=== PATIENT | female | born 1995 | race Asian ===

== ENCOUNTER 2019-03-11 23:53 | Emergency (ER) | payer OTHER ==
[~2019-03-11] VITALS: Ht 162.6 cm; Wt 54.4 kg
--- NOTE | 2019-03-11 23:53 | NUR ---
ED Nurse Note: pt brought in by [facility] from [facility] c/c ETOH intoxication, per EMS report pt's friends called 911 because the pt was too drunk. pt had vomiting episode x 1 with ems. pt currently unable to stay awake, sleeping at this time, vss, resp even and unlabored on RA, will cont monitor.
[2019-03-11 23:55] VITALS: BP 111/70
--- NOTE | 2019-03-12 00:04 | Emergency Room Report ---
History of Present Illness General Chief Complaint: Alcohol Intoxication Source: EMS Present Illness HPI This is a 24-year-old female with unknown past medical history. She presents with chief complaint of alcohol intoxication. Her friends called 911 because she is been drinking and was vomiting. She was outside of a concert. No trauma. History is limited because of patient's condition. Allergies: Coded Allergies: No Known Allergies (Unverified , 03/11/19) Patient History Past Medical History: see triage record, old chart reviewed Past Surgical History: none Pertinent Family History: none Social History: Reports: alcohol use Last Menstrual Period: unk Now: No Immunizations: other Reviewed Nursing Documentation: PMH: Agreed; PSxH: Agreed Nursing Documentation-PMH Past Medical History Deferred: Patient Unconscious Review of Systems All Other Systems: limited - Limited because of intoxication Physical Exam Vital Signs Date Time Temp Pulse Resp B/P (MAP) Pulse Ox O2 Delivery O2 Flow Rate FiO2 03/11/19 23:45 97.2 100 15 111/70 (84) 98 Room Air Vitals normal Sp02 EP Interpretation: reviewed, normal General Appearance: well appearing, no apparent distress, other - Intoxicated Head: normocephalic, atraumatic Eyes: bilateral eye PERRL, bilateral eye EOMI ENT: hearing grossly normal, normal pharynx Neck: full range of motion, supple, no meningismus Respiratory: chest non-tender, lungs clear, normal breath sounds Cardiovascular #1: regular rate, rhythm, no murmur Gastrointestinal: normal bowel sounds, non tender, no mass, no organomegaly, no bruit, non-distended Musculoskeletal: back normal, gait/station normal, normal range of motion Psychiatric: mood/affect normal Medical Decision Making Diagnostic Impression: Primary Impression: Acute alcoholic intoxication Qualified Codes: F10.920 - Alcohol use, unspecified with intoxication, uncomplicated ER Course Patient presents with acute alcohol intoxication. No trauma to warrant CT scan or x-ray. Will observe until clinical sobriety. Slept for several hours. Her friends are here to pick her up. Patient is more sober. Will discharge to friends. Last Vital Signs Date Time Temp Pulse Resp B/P (MAP) Pulse Ox O2 Delivery O2 Flow Rate FiO2 03/11/19 23:55 97.2 102 12 111/70 98 Room Air Status: improved Disposition: HOME, SELF-CARE Condition: Stable Patient Instructions: Alcohol Intoxication, [id number] Additional Instructions: Abstain from drinking to excess. Follow-up with your doctor in 7 days. Return if worse. Oz Kc MD Mar 12, 2019 00:04
--- NOTE | 2019-03-12 02:49 | NUR ---
ED Nurse Note: pt cleared to be d/c per ERMD, pt discharge and aftercare instruction provided, pt education done via discussion and handout, pt advised to follow up with pcp or return to ed if changes in condition, vss, ambulatory w/ steady gait, left w/ all belongings, iv d/c and id band removed, pt accompanied by friends.
[2019-03-12 02:51] VITALS: BP 126/72
== END 2019-03-12 02:51 | disposition home or self-care (01) ==
LOC: EDBD 23:53 → EMR 03-12 00:14
DX: F10.920 Alcohol use, unspecified with intoxication, uncomplicated (principal)
CPT/HCPCS: 36415; 99283; G0480; 80329